=== PATIENT | male | born 2005 | race Caucasian/White ===

== ENCOUNTER 2024-08-04 15:14 | Emergency (ER) | payer MEDICAID ==
[~2024-08-04] VITALS: Ht 170.2 cm; Wt 76.0 kg
[2024-08-04 15:38] VITALS: O2SAT 99
[2024-08-04] MEDS ORDERED: IBUP-2030 MT (18:40)
[2024-08-04 18:45] VITALS: BP 121/75; PULSE 66; RESP 11; TEMP 36.28068; O2SAT 100
== END 2024-08-04 19:11 | disposition home or self-care (01) ==
LOC: ER 15:43
DX: M54.2 Cervicalgia (principal); S09.90XA Unspecified injury of head, initial encounter; J45.909 Unspecified asthma, uncomplicated; V49.9XXA Car occupant (driver) (passenger) injured in unspecified traffic accident, initial encounter; Y93.89 Activity, other specified; Y92.89 Other specified places as the place of occurrence of the external cause; Y99.8 Other external cause status
CPT/HCPCS: 99284